=== PATIENT | male | born 1990 | race Caucasian/White ===

== ENCOUNTER 2019-04-20 18:58 | Emergency (ER) | payer SELFPAY ==
[~2019-04-20] VITALS: Ht 182.9 cm; Wt 51.3 kg
[2019-04-20] MEDS ORDERED: MORPHINE SULFATE 4 MG/ML VIAL. IV ONE (20:45)
[2019-04-20] MEDS ORDERED: IV NORMAL SALINE 1000ML BAG 1,000 ML IV ONE (20:45)
[2019-04-20] MEDS ORDERED: ONDANSETRON PF 4 MG/2 ML VIAL. IVP ONE (20:45)
[2019-04-20] MEDS ORDERED: FAMOTIDINE 20 MG/2 ML VIAL IVP ONE (20:45)
[2019-04-20 20:50] LABS: BASO % 0 % (0-3); EOS % 0 % (0-3); HEMATOCRIT 48.3 % (39.0-53.0); HEMOGLOBIN 16.8 g/dL (13.0-17.5); LYMPH # 1.2 x10^3/uL (1.0-4.8); LYMPH % 26 % (24-48); MEAN CORPUSCULAR HEMOGLOBIN 32 pg (25-35); MEAN CORPUSCULAR HGB CONC 35 g/dL (31-37); MEAN CORPUSCULAR VOLUME 92 fL (79-100); MONO # 0.9 x10^3/uL (0.0-1.1); MONO % 21 % (0-9); NEUT # 2.4 x10^3/uL (1.8-7.7); NEUT % 53 % (31-73); PLATELET COUNT 226 x10^3/uL (140-400); RED BLOOD COUNT 5.27 x10^6/uL (4.30-5.70); RED CELL DISTRIBUTION WIDTH 13.5 % (11.5-14.5); WHITE BLOOD COUNT 4.6 x10^3/uL (4.0-11.0)
[2019-04-20 20:57] LABS: PROTHROMBIN TIME PATIENT 13.2 SEC (11.7-14.0)
[2019-04-20] MEDS ORDERED: IOHEXOL 300 MG/ML 100ML VIAL. IV ONE (21:00)
[2019-04-20] MEDS ORDERED: CONTRAST GIVEN. MC PRN (21:00)
[2019-04-20 21:06] LABS: CALCIUM 9.4 mg/dL (8.5-10.1); CREATININE 0.8 mg/dL (0.7-1.3); POTASSIUM 3.5 mmol/L (3.5-5.1)
[2019-04-20 21:16] LABS: % ATYL 3 % (0-0); % BANDS 11 % (0-9); % LYMPHS 25 % (24-48); % MONOS 15 % (0-10); % SEGS 46 % (35-66)
[2019-04-20 21:21] LABS: ALBUMIN 4.4 g/dL (3.4-5.0); ALBUMIN/GLOBULIN RATIO 1.4 (1.0-1.7); TOTAL BILIRUBIN 0.3 mg/dL (0.2-1.0); TOTAL PROTEIN 7.6 g/dL (6.4-8.2)
[2019-04-20 21:24] LABS: PLT ESTIMATE ADEQUATE (ADEQUATE)
--- NOTE | 2019-04-20 21:56 | RAD ---
CT ABD PELV W/ IV CONTRST ONLY History: Abdominal pain. Nausea vomiting. Technique: After the administration of intravenous contrast, CT imaging was performed of the abdomen and pelvis. Multiplanar images are reviewed. Exposure: One or more of the following individualized dose reduction techniques were utilized for this examination: 1. Automated exposure control 2. Adjustment of the mA and/or kV according to patient size 3. Use of iterative reconstruction technique. Comparison: None Findings: Lower chest: No consolidation or pleural effusion. Abdomen and pelvis: The liver, spleen, adrenal glands, pancreas and gallbladder are unremarkable. Normal appearance the kidneys. No hydronephrosis. No biliary ductal dilatation. Patent portal veins. Appendix not well identified due to lack of mesenteric fat. No inflammatory changes within the right lower quadrant to suggest acute appendicitis. No evidence of bowel obstruction. No pathologic lymphadenopathy. No ascites. Decompressed urinary bladder. Bones: No pathologic osseous lesions. Impression: 1. No acute intra-abdominal or pelvic pathology. Appendix not well identified due to lack of mesenteric fat. No inflammatory changes findings to suggest acute appendicitis. Electronically signed by: Fam Mcguire DO (04/20/2019 9:53 PM) [facility]
[2019-04-20] MEDS ORDERED: DICY20TA3 PO (22:34)
[2019-04-20] MEDS ORDERED: ONDA4TAB12 PO (22:34)
--- NOTE | 2019-04-20 22:34 | PHYS DOC ---
Past Medical History Past Medical History: No Pertinent History Past Surgical History: Tonsillectomy Alcohol Use: None Drug Use: None Adult General Chief Complaint Chief Complaint: NAUSEA/VOMITING/DIARRHA HPI HPI Patient is a 29 year old male who presents to the ED today complaining of nausea vomiting and diarrhea that began 4 days ago. Patient is complaining of moderate intermittent periumbilical abdominal pain with his symptoms. Denies any exacerbating or relieving factors to his symptoms. He is very talkative speaking very fast. Review of Systems Review of Systems Constitutional: Denies fever or chills [] Eyes: Denies change in visual acuity, redness, or eye pain [] HENT: Denies nasal congestion or sore throat [] Respiratory: Denies cough or shortness of breath [] Cardiovascular: No additional information not addressed in HPI [] GI: Reports abdominal pain, nausea vomiting and diarrhea, denies any hematemesis or melena : Denies dysuria or hematuria [] Musculoskeletal: Denies back pain or joint pain [] Integument: Denies rash or skin lesions [] Neurologic: Denies headache, focal weakness or sensory changes [] All other systems were reviewed and found to be within normal limits, except as documented in this note. Current Medications Current Medications Current Medications Medications (Trade) Dose Ordered Sig/Benito Start Time Stop Time Status Last Admin Dose Admin Famotidine (Pepcid Vial) 20 mg 1X ONCE 04/20/19 20:45 04/20/19 20:46 DC 04/20/19 20:54 20 MG Info (CONTRAST GIVEN -- Rx MONITORING) 1 each PRN DAILY PRN 04/20/19 21:00 04/22/19 20:59 Iohexol (Omnipaque 300 Mg/ml) 75 ml 1X ONCE 04/20/19 21:00 04/20/19 21:01 DC 04/20/19 21:20 75 ML Morphine Sulfate (Morphine Sulfate) 4 mg 1X ONCE 04/20/19 20:45 04/20/19 20:46 DC 04/20/19 20:55 4 MG Ondansetron HCl (Zofran) 4 mg 1X ONCE 04/20/19 20:45 04/20/19 20:46 DC 04/20/19 20:54 4 MG Sodium Chloride 1,000 ml @ 1,000 mls/hr 1X ONCE 1/12/20 20:45 04/20/19 21:44 DC 04/20/19 20:56 1,000 MLS/HR Allergies Allergies Allergies Coded Allergies Type Severity Reaction Last Updated Verified No Known Drug Allergies 12/26/13 No Physical Exam Physical Exam Constitutional: Well developed, well nourished, no acute distress, non-toxic appearance. [] HENT: Normocephalic, atraumatic, bilateral external ears normal, oropharynx moist, no oral exudates, nose normal. [] Eyes: PERRLA, EOMI, conjunctiva normal, no discharge. [] Neck: Normal range of motion, no tenderness, supple, no stridor. [] Cardiovascular:Heart rate regular rhythm, no murmur [] Lungs & Thorax: Bilateral breath sounds clear to auscultation [] Abdomen: Bowel sounds normal, soft, no tenderness, no masses, no pulsatile masses. [] Skin: Warm, dry, no erythema, no rash. [] Back: No tenderness, no CVA tenderness. [] Extremities: No tenderness, no cyanosis, no clubbing, ROM intact, no edema. [] Neurologic: Alert and oriented X 3, normal motor function, normal sensory function, no focal deficits noted. [] Psychologic: Rapid speech. Current Patient Data Vital Signs Vital Signs Date Time Temp Pulse Resp B/P (MAP) Pulse Ox O2 Delivery O2 Flow Rate FiO2 04/20/19 20:55 18 98 04/20/19 19:35 98.0 96 114/81 (92) Room Air 98.0 Lab Values Laboratory Tests Test 04/20/19 20:22 White Blood Count 4.6 x10^3/uL (4.0-11.0) Red Blood Count 5.27 x10^6/uL (4.30-5.70) Hemoglobin 16.8 g/dL (13.0-17.5) Hematocrit 48.3 % (39.0-53.0) Mean Corpuscular Volume 92 fL (79-100) Mean Corpuscular Hemoglobin 32 pg (25-35) Mean Corpuscular Hemoglobin Concent 35 g/dL (31-37) Red Cell Distribution Width 13.5 % (11.5-14.5) Platelet Count 226 x10^3/uL (140-400) Neutrophils (%) (Auto) 53 % (31-73) Lymphocytes (%) (Auto) 26 % (24-48) Monocytes (%) (Auto) 21 % (0-9) H Eosinophils (%) (Auto) 0 % (0-3) Basophils (%) (Auto) 0 % (0-3) Neutrophils # (Auto) 2.4 x10^3/uL (1.8-7.7) Lymphocytes # (Auto) 1.2 x10^3/uL (1.0-4.8) Monocytes # (Auto) 0.9 x10^3/uL (0.0-1.1) Eosinophils # (Auto) 0.0 x10^3/uL (0.0-0.7) Basophils # (Auto) 0.0 x10^3/uL (0.0-0.2) Segmented Neutrophils % 46 % (35-66) Band Neutrophils % 11 % (0-9) H Lymphocytes % 25 % (24-48) Atypical Lymphocytes % (Manual) 3 % (0-0) H Monocytes % 15 % (0-10) H Platelet Estimate Adequate (ADEQUATE) Prothrombin Time 13.2 SEC (11.7-14.0) Prothrombin Time INR 1.0 (0.8-1.1) Activated Partial Thromboplast Time 34 SEC (24-38) Sodium Level 137 mmol/L (136-145) Potassium Level 3.5 mmol/L (3.5-5.1) Chloride Level 98 mmol/L (98-107) Carbon Dioxide Level 32 mmol/L (21-32) Anion Gap 7 (6-14) Blood Urea Nitrogen 13 mg/dL (8-26) Creatinine 0.8 mg/dL (0.7-1.3) Estimated GFR (Cockcroft-Gault) 116.0 BUN/Creatinine Ratio 16 (6-20) Glucose Level 94 mg/dL (70-99) Calcium Level 9.4 mg/dL (8.5-10.1) Total Bilirubin 0.3 mg/dL (0.2-1.0) Aspartate Amino Transferase (AST) 30 U/L (15-37) Alanine Aminotransferase (ALT) 15 U/L (16-63) L Alkaline Phosphatase 68 U/L (46-116) Total Protein 7.6 g/dL (6.4-8.2) Albumin 4.4 g/dL (3.4-5.0) Albumin/Globulin Ratio 1.4 (1.0-1.7) Lipase 102 U/L (73-393) Ethyl Alcohol Level < 10 mg/dL (0-10) Laboratory Tests 04/20/19 20:22 Laboratory Tests 04/20/19 20:22 EKG EKG [] Radiology/Procedures Radiology/Procedures []PROCEDURE: CT ABD PELV W/ IV CONTRST ONLY CT ABD PELV W/ IV CONTRST ONLY History: Abdominal pain. Nausea vomiting. Technique: After the administration of intravenous contrast, CT imaging was performed of the abdomen and pelvis. Multiplanar images are reviewed. Exposure: One or more of the following individualized dose reduction techniques were utilized for this examination: 1. Automated exposure control 2. Adjustment of the mA and/or kV according to patient size 3. Use of iterative reconstruction technique. Comparison: None Findings: Lower chest: No consolidation or pleural effusion. Abdomen and pelvis: The liver, spleen, adrenal glands, pancreas and gallbladder are unremarkable. Normal appearance the kidneys. No hydronephrosis. No biliary ductal dilatation. Patent portal veins. Appendix not well identified due to lack of mesenteric fat. No inflammatory changes within the right lower quadrant to suggest acute appendicitis. No evidence of bowel obstruction. No pathologic lymphadenopathy. No ascites. Decompressed urinary bladder. Bones: No pathologic osseous lesions. Impression: 1. No acute intra-abdominal or pelvic pathology. Appendix not well identified due to lack of mesenteric fat. No inflammatory changes findings to suggest acute appendicitis. Electronically signed by: Fam Warren DO (04/20/2019 9:53 PM) [facility] DICTATED and SIGNED BY: FAM WARREN DO DATE: 04/20/192152 Course & Med Decision Making Course & Med Decision Making Pertinent Labs and Imaging studies reviewed. (See chart for details) This is a 29-year-old male patient who presents to the ED today complaining of nausea vomiting and diarrhea as well as abdominal pain for 4 days. Labs, and CAT scan and negative for any acute findings. Vitals are stable. Patient was given a liter of fluid pain medicine and nausea medicine, feeling better. Discharged to home with Zofran and dicyclomine. Follow-up with PCP in 1-2 weeks. Dragon Disclaimer Dragon Disclaimer This electronic medical record was generated, in whole or in part, using a voice recognition dictation system. Departure Departure Impression: Primary Impression: Nausea and vomiting Additional Impressions: Diarrhea Abdominal pain Disposition: 02 TRANSFER [facility] Condition: STABLE Referrals: NO PCP (PCP) JOSÉ JUSTICE MD follow up with your doctor in the course of this week Patient Instructions: Diarrhea, [id number], Nausea and Vomiting, [id number] Additional Instructions: You were evaluated in the emergency room for nausea vomiting and diarrhea. Your work up in the emergency room was a negative for any acute findings. Push fluids, maintain good hand hygiene, take the prescribed medications as ordered and follow-up with your doctor in 1-2 weeks Scripts Dicyclomine Hcl (DICYCLOMINE HCL) 20 Mg Tablet 1 TAB PO TID, #30 TAB 1 Refill Prov: ASHLY KAY APRN 04/20/19 Ondansetron (ONDANSETRON ODT) 4 Mg Tab.rapdis 1 TAB PO PRN Q6-8HRS, #20 TAB Prov: ASHLY KAY APRN 04/20/19 Problem Qualifiers Primary Impression: Nausea and vomiting Vomiting type: unspecified Vomiting Intractability: non-intractable Qualified Codes: R11.2 - Nausea with vomiting, unspecified Additional Impressions: Diarrhea Diarrhea type: unspecified type Qualified Codes: R19.7 - Diarrhea, unspecified Abdominal pain Abdominal location: periumbilical Qualified Codes: R10.33 - Periumbilical pain ASHLY KAY APRN Apr 20, 2019 22:34
[2019-04-20 22:36] VITALS: BP 105/64
[2019-04-20] MEDS ORDERED: ALPRAZolam 0.5 MG TABLET PO ONE (23:00)
== END 2019-04-20 23:06 | disposition home or self-care (01) ==
LOC: ER 18:58
DX: R11.2 Nausea with vomiting, unspecified (principal); R19.7 Diarrhea, unspecified; R10.33 Periumbilical pain; Z90.89 Acquired absence of other organs
CPT/HCPCS: 36415; 74177; 80053; 83690; 85007; 85025; 85610; 85730; 87045; 87493; 96361; 96374; 96375; 99285; G0480; J2270; J2405; J3490; J7030; Q9967